=== PATIENT | male | born 1965 | race Caucasian/White ===

== ENCOUNTER 2019-08-27 06:11 | Emergency (ER) | payer MEDICAID ==
[~2019-08-27] VITALS: Ht 182.9 cm; Wt 79.5 kg
[~2019-08-27 06:11] MED LIST: BUPR1PAT9 TOP; EZET10TA6 PO; FLUT16SP10 NS; HYDR-4353 PO; INSU100I31 SQ; LYR75C PO; METF-436 PO; MINO50CA5 PO; MONT10TA21 PO; PANT-47 PO
[2019-08-27 06:17] VITALS: BP 128/74
[2019-08-27] MEDS ORDERED: morphine 4 MG/ML inj SYRINge IM ONE (07:15)
[2019-08-27] MEDS ORDERED: ketorolac tromethamine 15mg/ml inj. IM ONE (07:15)
--- NOTE | 2019-08-27 07:25 | NUR ---
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
== END 2019-08-27 08:49 | disposition home or self-care (01) ==
LOC: ER 06:12
DX: G89.29 Other chronic pain (principal); M54.5 Low back pain; E11.42 Type 2 diabetes mellitus with diabetic polyneuropathy; M19.90 Unspecified osteoarthritis, unspecified site; F17.200 Nicotine dependence, unspecified, uncomplicated; Z98.890 Other specified postprocedural states; Z56.0 Unemployment, unspecified; Z79.4 Long term (current) use of insulin; Z79.899 Other long term (current) drug therapy
CPT/HCPCS: 72100; 96372; 99284; J1885; J2270

== ENCOUNTER 2022-03-03 00:56 | Emergency (ER) | payer MEDICAID ==
[~2022-03-03] VITALS: Ht 182.9 cm; Wt 88.6 kg
[2022-03-03 00:56] VITALS: BP 113/82
[2022-03-03] MEDS ORDERED: HYDROcodone/acetaminophen 10/325mg tab PO ONE (01:05)
[2022-03-03] MEDS ORDERED: ketorolac trometh. 30mg/ml inj. IM ONE (01:05)
[2022-03-03] MEDS ORDERED: orphenadrine citrate 60mg/2ml inj. IM ONE (02:10)
== END 2022-03-03 02:56 | disposition home or self-care (01) ==
LOC: ER 00:56
DX: M54.50 Low back pain, unspecified (principal); G89.29 Other chronic pain; E11.9 Type 2 diabetes mellitus without complications; M19.90 Unspecified osteoarthritis, unspecified site; F17.200 Nicotine dependence, unspecified, uncomplicated; Z98.890 Other specified postprocedural states; Z56.0 Unemployment, unspecified; Z79.4 Long term (current) use of insulin; Z79.899 Other long term (current) drug therapy; W19.XXXA Unspecified fall, initial encounter; Y93.89 Activity, other specified; Y92.89 Other specified places as the place of occurrence of the external cause; Y99.8 Other external cause status
CPT/HCPCS: 72100; 72170; 96372; 99284; J1885; J2360

== ENCOUNTER 2024-02-28 16:15 | Emergency (ER) | payer MEDICAID ==
[~2024-02-28] VITALS: Ht 182.9 cm; Wt 75.0 kg
[~2024-02-28 16:15] MED LIST changes: +MONT-47 PO; -MONT10TA21 PO
[2024-02-28 16:20] VITALS: BP 153/81; PULSE 74; RESP 18; TEMP 98; O2SAT 97
[2024-02-28] MEDS: LORazepam 1 MG tablet PO ONE (16:30)
[2024-02-28] MEDS: insulin regular, human 10 units/0.1 ml syringe SQ ONE (16:30)
[2024-02-28] MEDS ORDERED: ibuprofen tablet 400 MG TABLET PO ONE (17:00)
[2024-02-28] MEDS: ibuprofen 200mg tablet PO ONE (17:04)
== END 2024-02-28 17:21 ==
LOC: ER 16:15
DX: S43.102A Unspecified dislocation of left acromioclavicular joint, initial encounter (principal); E11.42 Type 2 diabetes mellitus with diabetic polyneuropathy; M19.90 Unspecified osteoarthritis, unspecified site; G89.29 Other chronic pain; M54.9 Dorsalgia, unspecified; Z79.899 Other long term (current) drug therapy; Z79.4 Long term (current) use of insulin; W19.XXXA Unspecified fall, initial encounter; Y93.89 Activity, other specified; Y92.89 Other specified places as the place of occurrence of the external cause; Y99.8 Other external cause status
CPT/HCPCS: 73030; 82948; 96372; 99283; J1815; A4565